=== PATIENT | male | born 1960 | race Caucasian/White ===

== ENCOUNTER 2017-01-05 00:39 | Emergency (ER) | payer MEDICARE, MEDICAID ==
[~2017-01-05] VITALS: Ht 162.6 cm; Wt 63.6 kg
[~2017-01-05 00:39] MED LIST: ALBU2.5V4 IH; ALBU8.5H2 IH; CLON0.2T PO; DEP500A PO; DEP500ER PO; DEXT10CA PO; FLUT12AE6 IH; HYDR-3740 PO; HYDR-3797 PO; IPRA3AMP18 IH; IPRA42SP NS; LOPE2TAB32 PO; LORA10TA73 PO; OMEP-113 PO; ONDA4TAB12 PO; ROPI2TAB3 PO
[2017-01-05 00:47] VITALS: BP 160/90; PULSE 88; RESP 18; O2SAT 98
--- NOTE | 2017-01-05 01:17 | ED.REPORT ---
HPI-General Illness Date of Service Jan 05, 2017 ED Provider: Jonah Glover MD Pt is a 56 y.o. male with chronic neck and back pain who presents to the ED via EMS c/o left lower extremity pain onset prior to arrival. Pt states that he was walking across the street and felt his calf "blow up" and he proceeded to fall to the ground landing on his left arm and shoulder. He states the pain radiates from his calf to behind his knee. Pt states he has an appointment with an Orthopedic surgeon on Thursday for a previous rotator cuff injury and surgery. Pt is currently followed by [facility]. Nursing Notes Stated Complaint: LT LEG PAIN POST FALL Chief Complaint: Extremity Trauma Nursing Notes Reviewed: Yes Allergies: Coded Allergies: dexamethasone (Unverified Allergy, Severe, Agitation, 01/05/17) tramadol (Verified Allergy, Severe, Diarrhea, 05/19/14) morphine (Verified Allergy, Intermediate, WEIGHT LOSS, 08/12/15) Scheduled Clonidine (Clonidine) 0.2 Mg Tablet 0.2 MG PO BID Dextroamphetamine Sulfate (Dexedrine) 10 Mg Capsule.er 10 MG PO TID Divalproex DR (Depakote DR) 500 Mg Tabec 1,000 MG PO HS Swallowed whole without chewing to avoid local irritation of the mouth and throat. Divalproex ER (Depakote ER) 500 Mg Tab.er.24 500 MG PO DAILY *DAILY USE ONLY* Swallowed whole without chewing to avoid local irritation of the mouth and throat. Fluticasone/Salmeterol (Advair Hfa 230-21 Mcg Inhaler) 12 Gm Hfa.aer.ad 2 PUFF IH BID Hydrocodone-Acetaminophen 10-325 mg (Hydrocodone-Acetaminophen 10-325 mg) 1 Tab Tablet 2 TAB PO Q6 Ipratropium Bessie (Atrovent 0.06% Nasal) 15 Ml Amorita 1 SPRAY NS TID Loratadine (Claritin) 10 Mg Tablet 10 MG PO DAILY Omeprazole Magnesium (Omeprazole) 20 Mg Capsule.dr 20 MG PO DAILY Ondansetron ODT (Ondansetron ODT) 4 Mg Tab.rapdis 4 MG PO QID Ropinirole (Ropinirole) 2 Mg Tablet 2 MG PO HS Scheduled PRN Albuterol HFA (Proair HFA) 8.5 Gm Hfa.aer.ad 2 PUFFS IH Q4 PRN PRN For Shortness of Breath Albuterol Neb Soln (Albuterol Neb Soln) 2.5 Mg/3 Ml Vial.neb 3 ML IH Q4 PRN PRN For Shortness of Breath Hydroxyzine Pamoate (HydrOXYzine Pamoate) 25 Mg Capsule 25 MG PO Q6 PRN PRN For Agitation Ipratropium/Albuterol Sulfate (Duoneb 0.5 mg-3 mg/3 ml Soln) 3 Ml Ampul.neb 3 ML IH BID PRN PRN For Shortness of Breath Loperamide (Loperamide) 2 Mg Tablet 2 MG PO Q4H PRN PRN For GI Cramps General Time Seen by MD: 01:16 Chief Complaint Other (Extremity injury, LLE) Hx Obtained From: Patient Arrived By: Ambulance Sudden in Onset?: Yes Onset Occurred: Just prior to arrival Symptom Duration: Since onset Location: : Leg left Quality: Painful Severity: Current: Severe Severity: Maximum: Severe Recent Healthcare: No recent doctor visit, No recent hospitalization Similar Sx Previous: No Past Medical History Past Medical History Notes: Being followed by [facility] Past Medical History PER OLD REPORTS Longstanding/severe COPD on nocturnal oxygen, tobacco dependence, Chronic/back & neck pain, PTSD/Bipolar/ADHD PER PATIENT Spinal stenosis Osteoarthrits Osteoperosis Reports left hip and lower lumbar fracture Past Surgical History Right carpal tunnel surgery Right rotator cuff surgery Smoking History Current Every Day Smoker Social History Other Social History: Local resident Ambulatory Status Independent Review of Systems Full Review of Systems Musculoskeletal: Reports: Extremity pain (LLE) Complete sys rev & neg: except as marked. Physical Exam Vital Signs Vital Signs Date Time Temp Pulse Resp B/P Pulse Ox O2 Delivery O2 Flow Rate FiO2 01/05/17 03:08 Room Air 01/05/17 00:47 36.0 88 18 160/90 98 Room Air Initial VS: Reviewed Respiratory: Breath sounds normal, No respiratory distress Cardiovascular: Regular rate & rhythm, Intact distal pulses Abdomen / GI: No distention Extremities: Vascular intact, Neuro intact Skin: Warm, Dry, No cyanosis Neurologic: Alert, Oriented, Nonfocal Psychiatric: Mood/affect normal, Behavior normal, Normal thought content General/Constitutional: Awake, Alert, Well appearing, Well developed, Well hydrated, Well nourished, Not toxic appearing Head / Eyes: Atraumatic, Normocephalic, PERRL Lower Extremity / Pelvis / MS: Atraumatic, Inspection NL, No swelling, No deformity, Neurologic intact, Vascular intact Lower Extremities Normals: Leg / calf R exam normal Left Leg / Calf: Positive: Tenderness present..., Negative: Pulses distal absent, Pulses distal decreased Trauma / Burn / Environmental: Negative: Hematoma Negative Rivas's test No fluid collection Interpretation & Diagnostics X-Ray Interpretation Xray Interpretation: IMPRESSION: No fracture seen. X-Ray Ordered: Knee left Interpretation / Wet Read by: Wet read ED physician Interpretation: Normal exam, No fracture/dislocation Re-Eval/Medical Decision Med Decision/Clinical Course 56M w/ sudden onset of L calf pain while walking shortly prior to arrival. Not swollen, no ecchymosis. Randolph a 'pop' - not c/w DVT. Knee XR negative, neg drawer tests. Neg Rivas test - doubt achilles rupture. Possible that this is a gastrocnemius strain/tear - plan d/c w/ already scheduled ortho f/u, careful return precautions. Given crutches for use as needed. No add'l injuries or pain from fall, no LOC, new neck pain, or new back pain. Patient agreeable, no further questions. Source of Hx: Old records Time of Eval: 02:53 Re-Evaluation/Progress Note: Pt rechecked. Discussed imaging results and plan for discharge, pt understands and agrees with plan. Counseled Regarding: Diagnosis, Lab results, Need for follow-up, When/why to return to ED Discharge & Departure Primary Impression: Gastrocnemius strain, left Disposition: Home Discharge Condition All VS Reviewed: Yes Condition: Improved Patient Instructions: Crutch Instructions (ED), Muscle Strain (ED) Additional Instructions: Thank you for entrusting us with your care today. In the emergency department it is difficult to make a definitive diagnosis. Your x-ray was reassuring and no fracture was seen however we could not rule out a tear in your calf muscle. You should keep your leg immobilized and if you are unable to bear weight I recommend you use crutches. Keep your appointment with your orthopedic surgeon on Thursday and discuss your visit today in the ED. Return if you develop increasing pain, decreased sensation in your extremity, redness, swelling, or any new or worsening symptoms. Referrals: Lois Coombs PA-C (PCP) Scribe Attestation Portions of this note were transcribed by Alexandre Restrepo. I, Dr. Glover personally performed the history, physical exam and medical decision-making; I reviewed and confirmed the accuracy of the information in the transcribed note. Signed by: Elyse Ramsey, 01/05/2017 and 0254. copies to: Lois Coombs PA-C, William B MD Jan 05, 2017 01:17 ALEXANDRE RESTREPO Jan 05, 2017 01:21
--- NOTE | 2017-01-05 08:12 | DRSVH ---
PROCEDURE: X-RAY LEFT KNEE, THREE VIEWS ([id number]) INDICATIONS: sudden onset pain; eval for fx TECHNIQUE: 3 views of the knee were acquired. COMPARISON: None. FINDINGS: Bones: No fractures or dislocations. No suspicious bony lesions. Soft tissues: No joint effusion. No suspicious soft tissue calcifications. IMPRESSION: No joint effusion or acute bony abnormality Dictated by: Uday Khan M.D. on 01/05/2017 at 8:09 Approved by: Uday Khan M.D. on 01/05/2017 at 8:10
== END 2017-01-05 03:19 | disposition home or self-care (01) ==
LOC: EDBD 00:39 → EDUNIT# 00:39 → SED 00:39
DX: S86.112A Strain of other muscle(s) and tendon(s) of posterior muscle group at lower leg level, left leg, initial encounter (principal); W18.39XA Other fall on same level, initial encounter; Y93.01 Activity, walking, marching and hiking; Y92.410 Unspecified street and highway as the place of occurrence of the external cause; Y99.8 Other external cause status; F17.200 Nicotine dependence, unspecified, uncomplicated; F43.10 Post-traumatic stress disorder, unspecified; Z88.5 Allergy status to narcotic agent; Z88.6 Allergy status to analgesic agent; Z88.8 Allergy status to other drugs, medicaments and biological substances